=== PATIENT | male | born 1960 | race Caucasian/White ===

== ENCOUNTER 2017-06-15 18:09 | Emergency (ER) | payer BC ==
[~2017-06-15] VITALS: Ht 167.6 cm; Wt 137.7 kg
[2017-06-15 19:21] LABS: HEMATOCRIT 35.9 % (38.0-50.0); MCHC 36.2 G/DL (30.0-36.0); PLATELET COUNT 117 K/uL (156-360); RBC DIS.WIDTH-CV 12.3 % (11.8-14.6); RBC DIS.WIDTH-SD 42.5 % (39-53); RED BLOOD COUNT 3.82 M/uL (4.00-5.50); WHITE BLOOD COUNT 9.2 K/uL (4.1-10.2)
[2017-06-15 19:31] LABS: CHLORIDE 103 mEq/L (99-109); POTASSIUM 3.7 mEq/L (3.7-5.4); SODIUM 138 mEq/L (136-147)
[2017-06-15 19:32] LABS: GLUCOSE 109 mg/dL (70-99)
[2017-06-15 19:36] LABS: CREATININE 1.1 mg/dL (0.6-1.3); GFR ESTIMATE (CALCULATED) > 59 mL/min/ (58.99-99999)
[2017-06-15 19:37] LABS: UREA NITROGEN (BUN) 19 mg/dL (9-23)
[2017-06-15 19:45] LABS: TROP-I INTERPRETATION NEGATIVE; TROPONIN-I 0.02 ng/mL (0.0-0.30)
[2017-06-15 20:53] LABS: APPEARANCE CLEAR ((CLEAR)); BILIRUBIN NEGATIVE; BLOOD NEGATIVE; COLOR YELLOW ((YELLOW)); GLUCOSE (STRIP) NEGATIVE; KETONES NEGATIVE; LEUKOCYTES TRACE; NITRITE NEGATIVE; PROTEIN (STRIP) 30; SPECIFIC GRAVITY 1.028 (1.000-1.030); UROBILINOGEN 0.2 MG/DL (0.2-1.0)
[2017-06-15 20:56] LABS: BACTERIA RARE /HPF; EPITHELIAL CELLS NONE SEEN /HPF; MUCUS 1+ /LPF; RED BLOOD CELLS 0-5 /HPF (0-5); UCUL ADDED? NO; WHITE BLOOD CELLS 0-5 /HPF (0-5)
[2017-06-15 21:11] VITALS: BP 99/62
== END 2017-06-15 21:26 | disposition home or self-care (01) ==
LOC: EME 18:09
PROVIDERS: Emergency Medicine
DX: M54.5 Low back pain (principal); M62.830 Muscle spasm of back; R25.1 Tremor, unspecified; I10 Essential (primary) hypertension; G47.30 Sleep apnea, unspecified
CPT/HCPCS: 71046; 80048; 81003; 84484; 85027; 93005; 99281; 99285; J1885